=== PATIENT | female | born 1960 | race Caucasian/White ===

== ENCOUNTER 2017-05-29 09:03 | Outpatient (CLI) ==
[2013-05-16 21:17] VITALS: TEMP 98.4; BMI 20.1
--- NOTE | 2017-05-29 09:49 | DI ---
Exam: Two x-rays of the chest. Comparison: CTA performed to a 16. Reason for exam: Bronchitis. FINDINGS: No pneumothorax, pleural effusion, or focal consolidation. There is mild blunting of the left costophrenic angle. The cardiac silhouette is not enlarged. The imaged osseous structures ar e unremarkable without acute fracture. Impression: 1. Left costophrenic angle blunting consistent with atelectasis or pneumonia. 2. Otherwise, no acute cardiopulmonary process.
== END 2017-05-29 09:04 | disposition home or self-care (01) ==
LOC: RAD 09:03
PROVIDERS: ATTEND Family Medicine
DX: J40 Bronchitis, not specified as acute or chronic (principal)

== ENCOUNTER 2017-06-13 08:26 | Outpatient (CLI) ==
[2013-05-16 21:17] VITALS: TEMP 98.4; BMI 20.1
--- NOTE | 2017-06-13 08:47 | DI ---
EXAM: CHEST FRONTAL AND LATERAL VIEWS HISTORY: Cough. COMPARISON: 05/29/2017 FINDINGS: Heart size and mediastinal contour remain within normal limits. There is diffuse, chron ic appearing interstitial accentuation. Lungs are hyperinflated and there is relative lucency of th e lung zones suggesting emphysema. No acute infiltrates are seen. No vascular congestion. There i s no consolidation, visible pleural fluid or pneumothorax. Bones reveal no acute fracture. IMPRESSION: Chronic obstructive pulmonary disease is suggested radiographically, correlate clinica lly. No acute infiltrates.
== END 2017-06-13 08:27 | disposition home or self-care (01) ==
LOC: RAD 08:26
PROVIDERS: ATTEND Family Medicine
DX: R05 Cough (principal)

== ENCOUNTER 2017-12-11 14:16 | Outpatient (CLI) ==
[2013-05-16 21:17] VITALS: TEMP 98.4; BMI 20.1
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
== END 2017-12-11 14:17 | disposition home or self-care (01) ==
LOC: RAD 14:16
PROVIDERS: ATTEND Family Medicine
DX: S06.0X1D Concussion with loss of consciousness of 30 minutes or less, subsequent encounter (principal); V89.2XXD Person injured in unspecified motor-vehicle accident, traffic, subsequent encounter

== ENCOUNTER 2019-08-11 22:21 | Inpatient (IN) ==
[2019-08-11] MEDS ORDERED: ALBUTEROL 0.083% NEB NEB STA (23:05)
[2019-08-11] MEDS ORDERED: XOPENEX 1.25 MG NEB STA (23:05)
[2019-08-11] MEDS ORDERED: ATROVENT 0.02% NEB NEB STA (23:05)
[2019-08-11] MEDS: ALBUTEROL 0.083% NEB NEB ONE ×2 (23:10)
[2019-08-11] MEDS: ATROVENT 0.02% NEB NEB ONE ×2 (23:10→23:30)
[2019-08-11] MEDS: XOPENEX 1.25 MG NEB ONE ×2 (23:15→23:20)
[2019-08-12] MEDS ORDERED: SOLU-MEDROL 40 MG ONE (01:26)
[2019-08-12] MEDS ORDERED: DEXTROSE IV ONE (01:26)
[2019-08-12] MEDS ORDERED: POTASSIUM CHLORIDE 10 MEQ VIAL- ADDITIVE ONLY IV ONE (01:26)
[2019-08-12] MEDS ORDERED: LEVOFLOXACIN IV ONE (01:26)
[2019-08-12] MEDS ORDERED: TYLENOL PO PRN (02:34)
[2019-08-12] MEDS: POTASSIUM CHLORIDE 10 MEQ VIAL- ADDITIVE ONLY 10 MEQ in SODIUM CHLORIDE 1,000 ML IV SCH (02:54)
[2019-08-12] MEDS: SOLU-MEDROL 40 MG IVP SCH ×3 (02:55→21:38)
[2019-08-12] MEDS ORDERED: LEVAQUIN IV SCH (03:00)
[2019-08-12] MEDS ORDERED: D5W IV SCH (03:00)
[2019-08-12 03:22] VITALS: BMI 17.1
[2019-08-12] MEDS: DUONEB NEB SCH ×4 (04:45→19:43)
[2019-08-12] MEDS: SYNTHROID PO SCH (05:40)
[2019-08-12] MEDS: PROTONIX PO SCH ×2 (05:40→16:34)
[2019-08-12] MEDS: TOPAMAX PO SCH ×2 (08:03→21:38)
[2019-08-12] MEDS: MULTIVITAMIN TABLET PO SCH (08:03)
[2019-08-12] MEDS ORDERED: SYNTHROID PO SCH (09:00)
[2019-08-12] MEDS ORDERED: TOPIRAMATE PO SCH (09:00)
[2019-08-12] MEDS: NON-FORMULARY MEDICATION (Lacosamide [Vimpat] 100 MG) PO SCH ×2 (10:15→21:38)
--- NOTE | 2019-08-12 12:34 | CT ---
EXAM: CT scan thorax without contrast HISTORY: Cough fever COMPARISON: CT scan chest FINDINGS: Contiguous axial images were obtained through the thorax without contrast rising 5-mm sharan imation. Sagittal and coronal reconstructions were imaged and reviewed. The thoracic inlet is unrem arkable. Calcified lymph nodes are seen pretracheal , subcarinal and right hilar region. The heart is normal in size. The ascending aorta is ectatic measuring 3.5 cm.. There are moderate emphysemato us changes.. Pneumopleural scarring is noted at the bases. There is calcified granuloma posteriorly within the right upper lobe. Scattered nodular infiltrates are seen within the right upper lobe. N odular infiltrates also seen anteriorly right lower lobe extending to the inferior right hilum. Dens e consolidation is noted throughout the left lower lobe Punctate nonobstructive renal calculi bilate rally Impression: Emphysematous changes. Benign granulomatous changes. Bilateral pneumonia
--- NOTE | 2019-08-12 12:34 | CT ---
Exam: CT sinuses without contrast History: Drainage FINDINGS: Fluid level and mucosal thickening of the left maxillary sinus. Mucosal thickening of the sphenoid and ethmoid sinuses. The nasal airway is clear. Narrowing or occlusion of the left draini ng sinus ostia. Patent right draining sinus ostia. No bony changes are seen. The orbits and orbita l fat appear normal. The mastoid air cells and middle ears are clear. Impression: 1. Mucoperiosteal disease of the paranasal sinuses with left maxillary sinus fluid.
[2019-08-12] MEDS: LOVENOX SUBCUT SCH (15:12)
[2019-08-12] MEDS: TESSALON PERLES PO PRN (16:34)
[2019-08-12] MEDS: D5W IV SCH (21:38)
[2019-08-12] MEDS: LEVAQUIN IV SCH (21:38)
[2019-08-12] MEDS: REMERON PO SCH (21:38)
[2019-08-13] MEDS ORDERED: POTASSIUM CHLORIDE 10 MEQ VIAL- ADDITIVE ONLY IV ONE (00:17)
[2019-08-13] MEDS: POTASSIUM CHLORIDE 10 MEQ VIAL- ADDITIVE ONLY 10 MEQ in SODIUM CHLORIDE 1,000 ML IV SCH (00:19)
[2019-08-13] MEDS: TESSALON PERLES PO PRN ×3 (01:13→20:20)
[2019-08-13] MEDS: DUONEB NEB SCH ×4 (04:53→19:14)
[2019-08-13] MEDS: SYNTHROID PO SCH (05:55)
[2019-08-13] MEDS: PROTONIX PO SCH ×2 (05:55→17:07)
[2019-08-13] MEDS: SOLU-MEDROL 40 MG IVP SCH (09:36)
[2019-08-13] MEDS: NON-FORMULARY MEDICATION (Lacosamide [Vimpat] 100 MG) PO SCH ×2 (09:36→20:20)
[2019-08-13] MEDS: TOPAMAX PO SCH ×2 (09:36→20:17)
[2019-08-13] MEDS: MULTIVITAMIN TABLET PO SCH (09:37)
[2019-08-13] MEDS: LOVENOX SUBCUT SCH (09:37)
[2019-08-13] MEDS: REMERON PO SCH (20:17)
[2019-08-13] MEDS: LEVAQUIN IV SCH (20:18)
[2019-08-13] MEDS: D5W IV SCH (20:18)
[2019-08-14] MEDS: POTASSIUM CHLORIDE 10 MEQ VIAL- ADDITIVE ONLY 10 MEQ in SODIUM CHLORIDE 1,000 ML IV SCH (01:43)
[2019-08-14] MEDS: DUONEB NEB SCH ×3 (04:45→14:20)
[2019-08-14] MEDS: PROTONIX PO SCH ×2 (05:48→16:15)
[2019-08-14] MEDS: SYNTHROID PO SCH (05:48)
[2019-08-14] MEDS: NON-FORMULARY MEDICATION (Lacosamide [Vimpat] 100 MG) PO SCH (08:49)
[2019-08-14] MEDS: LOVENOX SUBCUT SCH (08:50)
[2019-08-14] MEDS: MULTIVITAMIN TABLET PO SCH (08:50)
[2019-08-14] MEDS: TOPAMAX PO SCH (08:50)
--- NOTE | 2019-08-14 11:51 | DI ---
EXAMINATION: Frontal and lateral views of the chest. HISTORY: Follow up pneumonia COMPARISON: 06/13/2017 chest x-ray, 08/11/2019 CT FINDINGS: The lungs are mildly hyperexpanded. Left basilar streaky opacities are seen and decreased compared t o the previous CT. Minimal right mid lung reticulonodular opacities are identified. Minimal right b asilar reticulonodular opacities are also seen. No pneumothorax or pleural effusion is identified. A right lung calcified granuloma is noted. The cardiomediastinal silhouette is within normal limits. IMPRESSION: Persistent but decreased bilateral infiltrates, most prominent within the left lung base.
[2019-08-14 13:50] VITALS: BP 116/74; TEMP 99
[2019-08-14] MEDS: TESSALON PERLES PO PRN (16:15)
--- NOTE | 2019-10-06 13:29 | HP ---
DISCUSSION: Ms. Meyer is a 59-year-old lady who presented to me with cough productive of purulent sputum associated with a fever up to 102, chills, chest pain from coughing and exertional shortness of breath. She was found to have radiographic evidence of pneumonia. She had recently finished a course of oral antibiotic and despite this had continued pulmonary symptoms associated with fever. At this point we felt she had had a failure of outpatient treatment and was admitted for IV antibiotics, updrafts and treatment of her pneumonia. PAST MEDICAL HISTORY: MEDICATIONS: Vimpat Prevacid Levothyroxine Mirtazapine Topamax ALLERGIES: PENICILLIN, SULFA, RED MEAT PAST MEDICAL HISTORY: History of migraine headaches History of GERD History of hypothyroidism History of migraine headaches SOCIAL HISTORY: She is . Previous smoker. No alcohol. No illicit drug use. FAMILY HISTORY: Reviewed and thought not to be pertinent to discussion. REVIEW OF SYSTEMS: Denies any ongoing headaches, visual changes, tinnitus, hemoptysis, abdominal pain, blood in the stool, urinary symptoms or seizures. PHYSICAL EXAMINATION: V/S: Temperature 99, pulse 98, respiratory rate 18, BP 116/74. HEENT: Pupils are round. NECK: Supple. CHEST: Bilateral rales and scattered rhonchi. CARDIOVASCULAR: Regular rate and rhythm. ABDOMEN: Soft, nontender. EXTREMITIES: Distal extremities without cyanosis or edema. ASSESSMENT: 1. PNEUMONIA FAILING OUTPATIENT TREATMENT. PLAN: 1. IV antibiotics. 2. Pulmonary updrafts. 3. Please see orders. MTDD
--- NOTE | 2019-10-06 13:33 | DS ---
PRINCIPAL DIAGNOSIS: 1. PNEUMONIA DISCUSSION: This is a 59-year-old lady who had recently been treated with oral antibiotics and despite this has had continued productive cough, low grade fever, chills, exertional shortness of breath without hemoptysis. Radiographs confirmed bilateral pneumonia. As she had failed outpatient treatment she was admitted to my services for IV fluids, antibiotics and treatment of pneumonia. CLINICAL COURSE: She did well during her hospitalization. She did rapidly defervesce. Her cough improved. Her oxygenation improved and at time of discharge she was ambulatory in the [place] without significant dyspnea and we felt she was stable for discharge. She was discharged home with antibiotics and steroids. She will followup with me in one week. COMFORT
== END 2019-08-14 18:45 | disposition home or self-care (01) | DRG 195 ==
LOC: ED 22:21 → MEDSURG B 08-12 02:16
PROVIDERS: ADMIT Family Medicine; ATTEND Family Medicine
DX: J18.9 Pneumonia, unspecified organism; R05 Cough; R06.02 Shortness of breath; E87.6 Hypokalemia